=== PATIENT | female | born 1975 | race Caucasian/White ===

== ENCOUNTER 2016-10-07 17:24 | Emergency (ER) | payer OTHER ==
[~2016-10-07] VITALS: Ht 167.6 cm; Wt 81.6 kg
[2016-10-07 18:01] LABS: ABSOLUTE BASOPHIL COUNT 0 /CUMM (0.0-0.2); ABSOLUTE EOSINOPHIL COUNT 0.1 /CUMM (0.0-0.7); ABSOLUTE GRANULOCYTE CT 6.4 /CUMM (1.4-6.5); ABSOLUTE LYMPH COUNT 1.5 /CUMM (1.2-3.4); ABSOLUTE MONOCYTE COUNT 0.6 /CUMM (0.10-0.60); BASOPHIL % 0.1 % (0.0-2.0); EOSINOPHIL % 1.1 % (0-5); GRANULOCYTE % 74.2 % (42.2-75.2); HEMATOCRIT 35.9 % (37-47); MEAN CORPUSCULAR HGB 28.6 PG (27.0-31.0); MEAN CORPUSCULAR HGB CONC 33.5 G/DL (33.0-37.0); MEAN CORPUSCULAR VOLUME 85.3 FL (81.0-99.0); MEAN PLATELET VOLUME 8.4 FL (7.4-10.4); PLATELET COUNT 337 /CUMM (130-400); RBC DISTRIBUTION WIDTH 14.4 % (11.5-14.5); RED BLOOD CELL CT 4.22 /CUMM (4.20-5.40); WHITE BLOOD CELL COUNT 8.7 /CUMM (4.8-10.8)
--- NOTE | 2016-10-07 18:48 | ED CARDIAC/CP/PALPITATIONS ---
History of Present Illness General Chief Complaint: Chest Pain Stated Complaint: C/P Source: patient, old records Exam Limitations: no limitations Vital Signs & Intake/Output Vital Signs & Intake/Output Vital Signs Date Time Temp Pulse Resp B/P Pulse O2 O2 Flow FiO2 Ox Delivery Rate 10/07 2228 97.9 73 18 152/92 99 Room Air 10/07 2103 70 18 160/92 97 Room Air 10/07 2013 96.6 69 16 176/94 99 Room Air 10/07 1916 Room Air 10/07 1729 98.5 88 16 180/102 98 Room Air Allergies Coded Allergies: NSAIDS (Non-Steroidal Anti-Inflamma (INCREASES BP 10/07/16) Pertussis Vaccines (ANAPHYLAXIS 10/07/16) clavulanic acid (THROAT/TONGUE SWELLING 10/07/16) Triage Note: 41 YEAR OLD FEMALE STATES THAT SHE HAS BEEN HAVING MID CP THAT RADIATES INTO HER ARMS FOR THE PAST 2 HOURS, PAIN HAS BEEN CONSTANT. PT STATES THAT SHE HAS FIBROMYALGIA SO ARM PAIN CAN BE FROM THAT , NSR ON EKG HR 68. LABS SENT Triage Nurses Notes Reviewed? yes Onset: Abrupt Duration: hour(s): (2), better, constant, waxing and waning Timing: single episode today Quality/Severity: moderate, aching Location: substernal Radiation: arms Activities at Onset: none Prior Chest Pain/Card Workup: SIMILAR SX Aspirin Today: 81 mg x 2, provided at home : No Patient currently breastfeeds: No HPI: 41-year-old female with history of hypertension on lisinopril fibromyalgia presents emergency room for evaluation complaining of a 2 hour history of mid chest pain that radiating to both her arms that came on while at rest. She is states is been constant since mild to moderate aching. She also reports to intermittent shortness of breath that has since resolved. No leg swelling no recent immobility or travel pain nausea or vomiting. she took her oxycodone extended release and immediate release pain medication prior to the episode beginning. There is no pain with inspiration no cough no hemoptysis fever or chills. On arrival patient is noted hypertensive. She states that she thinks her arm pain is attributed to her chronic nerve pain from her fibromyalgia. She denies any swelling to her arms no dizziness lightheadedness or palpitations. She is declining any pain medication on arrival. sHE REPORTS HISTORY OF SIMILAR EPISODES IN THE PAST HOWEVER STATES NEVER LASTED THIS LONG. Symptoms are not worse with exertion (ESVIN HARRIS) Reconcile Medications Clonazepam 0.5 MG TABLET 1 TAB PO PRN ANXIETY (Reported) Lisinopril 5 MG TABLET 1 TAB PO DAILY BP (Reported) Lisinopril/Hydrochlorothiazide (Lisinopril-Hctz 10-12.5 MG Tab) 10 MG-12.5 MG TABLET 1 TAB PO DAILY htn Loratadine (Claritin) 10 MG TABLET 1 TAB PO DAILY ALLERGIES (Reported) Metaxalone 800 MG TABLET 1 TAB PO Q4H PRN MUSCLE RELAXER (Reported) Oxycodone HCl (Oxycontin) 40 MG TAB.ER.12H 1 TAB PO TID PAIN (Reported) Oxycodone HCl 30 MG TABLET 1 TAB PO Q4P PRN PAIN (Reported) (YEHUDA CHAIREZ) Past History Travel History Traveled to [place] past 21 day No Medical History Any Pertinent Medical History? 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 No (ESVIN HARRIS) Review of Systems Review of Systems Constitutional: Reports: see HPI. All Other Systems: Reviewed and Negative Comments Review of systems: See HPI, All other systems negative. Constitutional, no chills no fever, no malaise HEENT: no sore throat no congestion, no ear pain Cardiovascular: chest pain , no palpitation , no orthopnea Skin, no rashes, no change in skin Respiratory: No dyspnea no cough no sputum no hemoptysis GI: No nausea no vomiting, no diarrhea, no bloating/constipation : No dysuria No hematuria Muscle skeletal: No joint pain, no joint swelling, no back pain, no neck pain, Neurologic: no headache Psych: No stress Heme/endocrine: No bruising no bleeding Immunology: No lymphadenopathy, (ESVIN HARRIS) Physical Exam Physical Exam General Appearance: well developed/nourished, alert, awake Cardiovascular: regular rate/rhythm Comments: Well-developed well-nourished person in no acute distress HEENT: Normal EENT exam; PERRL, EOMI, no nystagmus. HEAD is atraumatic. moist mucous membranes. Neck: Supple, no lymphadenopathy, normal range of motion without pain or tenderness Back: Nontender, no CVA tenderness. Full range of motion Cardiovascular: Regular rate and rhythms no murmurs rubs or gallops, normal JVP Respiratory: Chest nontender.There were no bony deformities, no asymmetry. No respiratory distress. Patient speaking in full complete sentences. Breath sounds clear to auscultation bilaterally: NO W/R/R Abdomen: Soft, nontender nondistended, no appreciable organomegaly. Normal bowel sounds. No rebound/guarding, No appreciable enlargement of the abdominal aorta, No ascites. Extremity: No edema, full range of motion of extremities, normal and equal pulses bilaterally, 5 out of 5 strength noted to bilateral upper and lower extremities Neuro: Alert oriented x3, motor sensory normal, cranial nerves II through XII grossly intact. There were no obvious focal neurologic abnormalities. Skin: No appreciable rash on exposed skin, skin is warm and dry. Psych: Mood and affect is normal, memory and judgment is normal. Core Measures ACS in differential dx? Yes Severe Sepsis Present: No Septic Shock Present: No All Positive = PERC Ruled Out: Positive: age < 50 years, heart rate < 100 bpm, O2 sat > 94%, no hemoptysis, no hormone use, no prior DVT or PE, no unilateral leg swellin, no surgery/trauma w/ in 4w. (ALMA DELIA MAYER,ESVIN) Progress Differential Diagnosis: AMI, aortic dissection, cholecystitis, CHF/pulm edema, hyperventilation, musculoskeletal pain, myocarditis, pericarditis, pneumonia, pneumothorax, pulmonary embolism, unstable angina Plan of Care: Orders Procedure Date/time Status TROPONIN LEVEL 10/07 2130 Complete EKG 10/07 2130 Active Telemetry/Superintendent Transportation 10/07 1901 Active TROPONIN LEVEL 10/07 1726 Complete COMPREHENSIVE METABOLIC PANEL 10/07 1726 Complete CBC WITHOUT DIFFERENTIAL 10/07 1726 Complete EKG 10/07 1726 Active Laboratory Tests 10/07/16 2132: Troponin I < 0.01 10/07/16 1730: Anion Gap 13, Estimated GFR > 60, BUN/Creatinine Ratio 16.7, Glucose 93, Calcium 9.8, Total Bilirubin 0.4, AST 19, ALT 35, Alkaline Phosphatase 66, Troponin I < 0.01, Total Protein 7.8, Albumin 4.5, Globulin 3.3, Albumin/Globulin Ratio 1.4, CBC w Diff NO MAN DIFF REQ, RBC 4.22, MCV 85.3, MCH 28.6, RDW 14.4, MPV 8.4, Gran % 74.2, Lymphocytes % 17.7 L, Monocytes % 6.9, Eosinophils % 1.1, Basophils % 0.1, Absolute Granulocytes 6.4, Absolute Lymphocytes 1.5, Absolute Monocytes 0.6, Absolute Eosinophils 0.1, Absolute Basophils 0, PUBS MCHC 33.5 Diagnostic Imaging: Viewed by Me: Radiology Read. Discussed w/RAD: Radiology Read. Radiology Impression: PATIENT: SHABBIR DAVID PRESENT AGE: 41 PATIENT ACCOUNT NO: [id number] : 75 LOCATION: [facility] ORDERING PHYSICIAN: ESVIN MAYER SERVICE DATE: 10/07/16 EXAM TYPE: RAD - XRY- CHEST XRAY, PA AND LATERAL EXAMINATION: CHEST 2 VIEWS CLINICAL INFORMATION: Dyspnea. COMPARISON: None. TECHNIQUE: PA and lateral views of the chest were obtained. FINDINGS: The cardiac silhouette is not enlarged. The mediastinal and hilar contours are unremarkable. There are neither pleural effusions nor pneumothoraces. There are no consolidations. The osseous structures are unremarkable. IMPRESSION: No evidence for acute disease. DICTATED BY: CHRISTIAN ZHANG MD DATE/TIME DICTATED:10/07/161927 STITCHING MACHINE SETTER:DAWOOD DATE/TIME TRANSCRIBED:10/07/161927 CONFIDENTIAL, DO NOT COPY WITHOUT APPROPRIATE AUTHORIZATION. <Electronically signed in Other Vendor System> SIGNED BY: CHRISTIAN ZHANG MD 10/07/161930 Initial ED EKG: normal intervals, normal p-waves, normal QRS complex, normal sinus rhythm Rhythm Strip: normal sinus rhythm Hand-Off Endorsed To: YEHUDA CHAIREZ Endorsed Time: 2099 Pending: EKG, labs (REPEAT TROP) (ESVIN HARRIS) Repeat EKG: unchanged (YEHUDA CHAIREZ) Departure Departure Disposition: HOME OR SELF CARE Condition: Stable Clinical Impression Primary Impression: Atypical chest pain Departure Forms: Customer Survey General Discharge Information (ESVIN HARRIS) Departure Referrals: WILFREDO HORTA,LUZ ELENA Ojeda Additional Instructions: Follow-up with your primary care doctor. Follow up with life guard provided. Return if any concerns worsening symptoms. Please go over all results of today's visit with your primary care doctor. Contact your primary care doctor to let them know you were here in the emergency room. There may be nonspecific findings which may not be related to your visit today here in the emergency room but may require further evaluation and chronic monitoring by your primary care doctor. If you had a laceration today the chance of foreign body always remains. You should follow-up with your primary care doctor for recheck in 3-5 days for a wound check. If you had an x-ray done there is a chance that a fracture could have been missed on initial read and you should follow-up with your primary care doctor for repeat x-rays if symptoms persist. If your blood pressure was elevated here in the emergency room please have rechecked by her primary care doctor within the next 48 hours by your primary care doctor. If you were prescribed a narcotic here in the emergency room or any type of controlled substances you're not allowed to drive while taking this medication or operate any type of heavy machinery. Narcotics can make you feel lightheaded dizziness nausea and can cause constipation. You may need to cloth picker a stool softener. Thank you for choosing [facility] emergency room. Please return to the emergency room immediately if you have any other concerns worsening of symptoms. Prescriptions: Current Visit Scripts Lisinopril/Hydrochlorothiazide (Lisinopril-Hctz 10-12.5 MG Tab) 1 TAB PO DAILY #30 TAB Comments 10/07/2016 10:38:14 PM Patient clinically looks well. Nontoxic-appearing. Second EKG unchanged. Second troponin normal. Case discussed with Dr. Hemphill. Return if any other concerns worsening symptoms. (YEHUDA CHAIREZ) PA/HOSPITAL WARD CLERK Co-Sign Statement Statement: ED Attending supervision documentation- [] I saw and evaluated the patient. I have also reviewed all the pertinent lab results and diagnostic results. I agree with the findings and the plan of care as documented in the PA's/HOSPITAL WARD CLERK's documentation. X[] I have reviewed the ED Record and agree with the PA's/HOSPITAL WARD CLERK's documentation. [] Additions or exceptions (if any) to the PAs/HOSPITAL WARD CLERK's note and plan are summarized below: [] (KAMRON HORTA,JENNIE Carson) Critical Care Note Critical Care Note Critical Care Time: non-applicable (ALMA DELIA MAYER,ESVIN)
[2016-10-07] MEDS ORDERED: OXYCONTIN40 M1 PO (19:04)
[2016-10-07] MEDS ORDERED: LISINOPRIL5 M1 PO (19:04)
[2016-10-07] MEDS ORDERED: METAXALONE800 M1 PO (19:04)
[2016-10-07] MEDS ORDERED: OXYCODONE HCL30 M1 PO (19:05)
[2016-10-07] MEDS ORDERED: CLARITIN10 M1 PO (19:05)
[2016-10-07] MEDS ORDERED: CLONAZEPAM0.5 M2 PO (19:05)
--- NOTE | 2016-10-07 19:31 | RADIOLOGY REPORT ---
EXAMINATION: CHEST 2 VIEWS CLINICAL INFORMATION: Dyspnea. COMPARISON: None. TECHNIQUE: PA and lateral views of the chest were obtained. FINDINGS: The cardiac silhouette is not enlarged. The mediastinal and hilar contours are unremarkable. There are neither pleural effusions nor pneumothoraces. There are no consolidations. The osseous structures are unremarkable. IMPRESSION: No evidence for acute disease.
[2016-10-07] MEDS ORDERED: LISINOPRIL-HCT1 EAC2 PO (22:24)
[2016-10-07 22:29] VITALS: BP 152/92
== END 2016-10-07 22:46 ==
LOC: ERH 17:24
PROVIDERS: Emergency Medicine
DX: R07.89 Other chest pain (principal)
CPT/HCPCS: 93005; 93010